=== PATIENT | female | born 1955 | race Caucasian/White ===

== ENCOUNTER 2017-07-17 18:30 | Emergency (ER) | payer OTHER ==
[2017-07-17] MEDS ORDERED: KETOROLAC 30 MG/ML 1 ML VIAL IM STA (19:11)
--- NOTE | 2017-07-17 19:19 | ED ---
Upper Extremity HPI - General Chief Complaint: Extremity Injury, Upper Stated Complaint: Fall Time Seen by Provider: 07/17/17 19:04 Source: patient Mode of arrival: ambulatory Limitations: no limitations - History of Present Illness Initial Comments: 61-year-old female presents with right shoulder pain in the last few hours. Patient states she fell slipped on the ice and fell directly on her right shoulder about 6 hours ago. Patient states she's used ice and ibuprofen which is getting worse. No previous injury no numbness or tingling. Patient denies any radiculopathy. Patient states it's hard to move her shoulder in any direction. no head injury, no neck pain. no loc MD Complaint: Injury to:: right, shoulder - Related Data Home Medications Medication Instructions Recorded Confirmed Tocilizumab [Actemra] 162 mg SQ [id number] 08/05/14 12/10/14 Escitalopram [Lexapro] 5 mg PO HS 07/17/17 07/17/17 Finacea 15% Gel 1 applic TOPICAL DIRECTED 07/17/17 07/17/17 Fluocinolone Acetonide [Lidex Soln] 1 applic TOPICAL DIRECTED 07/17/17 LORazepam [Ativan] 1 mg PO BID PRN 07/17/17 07/17/17 lamoTRIgine [LaMICtal] 200 mg PO BID 07/17/17 07/17/17 predniSONE 5 mg PO DAILY 07/17/17 07/17/17 traZODone HCL [Desyrel] 100 mg PO HS 07/17/17 07/17/17 Allergies Allergy/AdvReac Type Severity Reaction Status Date / Time hydrocodone bitartrate Allergy Swelling Verified 07/17/17 19:31 [From Vicodin] OF THROAT, Review of Systems ROS Statement: Those systems with pertinent positive or pertinent negative responses have been documented in the HPI. ROS Other: All systems not noted in ROS Statement are negative. Musculoskeletal: Reports: joint swelling Neurological: Reports: weakness (right shoulder). Denies: numbness, paresthesias Past Medical History Past Medical History: Rheumatoid Arthritis (RA) History of Any Multi-Drug Resistant Organisms: None Reported Past Surgical History: Breast Surgery Additional Past Surgical History / Comment(s): Breast Reduction,HEMORRHOIDS Past Anesthesia/Blood Transfusion Reactions: No Reported Reaction Past Psychological History: Bipolar, Depression Smoking Status: Former smoker Past Alcohol Use History: None Reported Past Drug Use History: None Reported - Past Family History Mother Family Medical History: Cancer Father Family Medical History: Cancer Sister(s) Family Medical History: No Reported History Brother(s) Family Medical History: No Reported History Daughter(s) Family Medical History: No Reported History (2 daughters no major medical problems.) General Exam Limitations: no limitations General appearance: alert, in no apparent distress Neck exam: Present: normal inspection. Absent: tenderness, meningismus, lymphadenopathy Respiratory exam: Present: normal lung sounds bilaterally. Absent: respiratory distress, wheezes, rales, rhonchi, stridor Cardiovascular Exam: Present: regular rate, normal rhythm, normal heart sounds. Absent: systolic murmur, diastolic murmur, rubs, gallop, clicks Right Shoulder Exam: Present: normal inspection, tenderness. Absent: full ROM, swelling Upper Arm exam: Present: normal inspection, tenderness (left upper arm). Absent : full ROM (decreased ROM , unable to tolerate any movement) Elbow exam: Present: normal inspection, full ROM. Absent: tenderness, swelling Forearm Wrist exam: Present: normal inspection, full ROM. Absent: tenderness, swelling Hand Wrist exam: Present: normal inspection, full ROM. Absent: tenderness, swelling Neuro motor exam: Present: wrist extension intact, thumb opposition intact Neurosensory exam: Present: 2-point discrimination Course Vital Signs 07/17/17 18:44 Temperature 98.1 F Pulse Rate 64 Respiratory 20 Rate Blood Pressure 139/64 O2 Sat by Pulse 100 Oximetry Medical Decision Making - Medical Decision Making Reviewed x-ray greater tuberosity fracture of the right side. Also suspicion for neck fracture as well. Patient and family aware given sling. Patient tolerated it well. patients x-rays also reviewed and discussed with Dr. Mayers. Disposition Clinical Impression: Fracture of humerus, Greater tuberosity of humerus fracture Disposition: HOME SELF-CARE Condition: Good Instructions: Arm Fracture in Adults (ED) Additional Instructions: Patient will take [id number] ibuprofen 800 mg every 6-8 hours as needed for pain. Referrals: Braeden Vilchis MD [Primary Care Provider] - 1-2 days Almita Samaniego PAC [PHYSICIAN TREASURY ASSISTANT] - 1-2 days Time of Disposition: 20:01
--- NOTE | 2017-07-17 19:44 | XR ---
EXAMINATION TYPE: XR shoulder complete RT DATE OF EXAM: 07/17/2017 CLINICAL HISTORY: Right shoulder pain. Status post slip and fall on the ice today. TECHNIQUE: Three views of the right shoulder are obtained. COMPARISON: None. FINDINGS: There is acute complete fracture of the lateral aspect of the humerus at the greater tubero sity. It is minimally displaced. There is also suspicion of a fracture of the surgical neck of the hu merus although this is only suspected on one view. Glenohumeral joint is otherwise intact. Soft tissu e structures of the hemithorax are unremarkable. IMPRESSION: Greater tuberosity fracture is identified within the humerus. There is also suspicion of a surgical n ankit fracture.
[2017-07-17 20:09] VITALS: BP 134/62; PULSE 62; RESP 18; TEMP 98.3
== END 2017-07-17 20:08 | disposition home or self-care (01) ==
LOC: EC 18:30
DX: S42.251A Displaced fracture of greater tuberosity of right humerus, initial encounter for closed fracture (principal); M06.9 Rheumatoid arthritis, unspecified; F31.9 Bipolar disorder, unspecified; Z87.891 Personal history of nicotine dependence; Z88.5 Allergy status to narcotic agent; Z79.52 Long term (current) use of systemic steroids; Z79.899 Other long term (current) drug therapy; W00.0XXA Fall on same level due to ice and snow, initial encounter
CPT/HCPCS: 73030; 99283; 96372; J1885

== ENCOUNTER 2017-07-28 15:39 | Emergency (ER) | payer OTHER ==
--- NOTE | 2017-07-28 15:54 | ED ---
General Adult HPI - General Chief complaint: Dizziness Stated complaint: VERTIGO Time Seen by Provider: 07/28/17 15:45 Source: patient, EMS, RN notes reviewed, old records reviewed Mode of arrival: EMS Limitations: no limitations - History of Present Illness Initial comments: This is a 61-year-old female ER for evaluation. Patient's last ER for evaluation of weakness and dizziness. Patient has history of underlying psychiatric illness. Patient states that his and multiple falls lately secondary to dizziness and weakness on her feet. Patient weighs of some mild back pain. Dizziness is worse with different postures in positions that she assumes. Patient denies any head trauma or headache. No recent change in medication - Related Data Home Medications Medication Instructions Recorded Confirmed Tocilizumab [Actemra] 162 mg SQ [id number] 08/05/14 07/28/17 Escitalopram [Lexapro] 5 mg PO DAILY 07/17/17 07/28/17 Fluocinolone Acetonide [Lidex Soln] 1 applic TOPICAL HS 07/17/17 07/28/17 LORazepam [Ativan] 1 mg PO BID PRN 07/17/17 07/28/17 lamoTRIgine [LaMICtal] 200 mg PO BID 07/17/17 07/28/17 predniSONE 5 mg PO DAILY 07/17/17 07/28/17 traZODone HCL [Desyrel] 100 mg PO HS 07/17/17 07/28/17 Previous Rx's Medication Instructions Recorded Meclizine [Antivert] 25 mg PO TID #30 tab 07/28/17 Ondansetron Odt [Zofran ODT] 4 mg PO Q8HR PRN #30 tab 07/28/17 Allergies Allergy/AdvReac Type Severity Reaction Status Date / Time hydrocodone bitartrate Allergy Swelling Verified 07/28/17 16:07 [From Vicodin] OF THROAT, Review of Systems ROS Statement: Those systems with pertinent positive or pertinent negative responses have been documented in the HPI. ROS Other: All systems not noted in ROS Statement are negative. Past Medical History Past Medical History: Rheumatoid Arthritis (RA) History of Any Multi-Drug Resistant Organisms: None Reported Past Surgical History: Breast Surgery Additional Past Surgical History / Comment(s): Breast Reduction,HEMORRHOIDS Past Anesthesia/Blood Transfusion Reactions: No Reported Reaction Past Psychological History: Bipolar, Depression Smoking Status: Former smoker Past Alcohol Use History: None Reported Past Drug Use History: None Reported - Past Family History Mother Family Medical History: Cancer Father Family Medical History: Cancer Sister(s) Family Medical History: No Reported History Brother(s) Family Medical History: No Reported History Daughter(s) Family Medical History: No Reported History (2 daughters no major medical problems.) General Exam Limitations: no limitations General appearance: alert, in no apparent distress Head exam: Present: atraumatic, normocephalic, normal inspection Eye exam: Present: normal appearance, PERRL, EOMI. Absent: scleral icterus, conjunctival injection, periorbital swelling ENT exam: Present: normal exam, mucous membranes moist Neck exam: Present: normal inspection. Absent: tenderness, meningismus, lymphadenopathy Respiratory exam: Present: normal lung sounds bilaterally. Absent: respiratory distress, wheezes, rales, rhonchi, stridor Cardiovascular Exam: Present: regular rate, normal rhythm, normal heart sounds. Absent: systolic murmur, diastolic murmur, rubs, gallop, clicks GI/Abdominal exam: Present: soft, normal bowel sounds. Absent: distended, tenderness, guarding, rebound, rigid Extremities exam: Present: normal inspection, full ROM, normal capillary refill. Absent: tenderness, pedal edema, joint swelling, calf tenderness Back exam: Present: normal inspection Neurological exam: Present: alert, oriented X3, CN II-XII intact Psychiatric exam: Present: normal affect, normal mood Skin exam: Present: warm, dry, intact, normal color. Absent: rash Course Vital Signs 07/28/17 07/28/17 07/28/17 15:44 16:39 18:22 Temperature 97 F L Pulse Rate 68 68 79 Respiratory 16 18 18 Rate Blood Pressure 163/77 158/75 150/68 O2 Sat by Pulse 97 98 98 Oximetry EKG Findings - EKG Comments: EKG Findings:: EKG shows normal sinus rhythm rate of 72, NE 162, QRS 90, QTc 444 Medical Decision Making - Medical Decision Making 61 female the ER with vertiginous-like symptoms, symptoms have completely resolved while here in the ER, patient able to ambulate without difficulty, CT x -rays labwork is normal and patient can be discharged home - Lab Data Result diagrams: 07/28/17 18:27 07/28/17 16:31 Lab Results 07/28/17 07/28/17 07/28/17 Range/Units 16:31 16:31 18:27 WBC 6.7 (3.8-10.6) k/uL RBC 4.23 (3.80-5.40) m/uL Hgb 12.4 (11.4-16.0) gm/dL Hct 38.5 (34.0-46.0) % MCV 91.0 (80.0-100.0) fL MCH 29.2 (25.0-35.0) pg MCHC 32.1 (31.0-37.0) g/dL RDW 14.2 (11.5-15.5) % Plt Count 205 (150-450) k/uL Neutrophils % 88 % Lymphocytes % 8 % Monocytes % 2 % Eosinophils % 0 % Basophils % 0 % Neutrophils # 5.9 (1.3-7.7) k/uL Lymphocytes # 0.6 L (1.0-4.8) k/uL Monocytes # 0.1 (0-1.0) k/uL Eosinophils # 0.0 (0-0.7) k/uL Basophils # 0.0 (0-0.2) k/uL Sodium 137 (137-145) mmol/L Potassium 4.3 (3.5-5.1) mmol/L Chloride 101 (98-107) mmol/L Carbon Dioxide 25 (22-30) mmol/L Anion Gap 11 mmol/L BUN 13 (7-17) mg/dL Creatinine 0.78 (0.52-1.04) mg/dL Est GFR (MDRD) Af Amer >60 (>60 ml/min/1.73 sqM) Est GFR (MDRD) Non-Af >60 (>60 ml/min/1.73 sqM) Glucose 106 H (74-99) mg/dL Calcium 9.2 (8.4-10.2) mg/dL Phosphorus 3.4 (2.5-4.5) mg/dL Magnesium 1.8 (1.6-2.3) mg/dL Total Bilirubin 0.5 (0.2-1.3) mg/dL AST 27 (14-36) U/L ALT 26 (9-52) U/L Alkaline Phosphatase 79 (38-126) U/L Total Creatine Kinase 65 (30-135) U/L CK-MB (CK-2) 0.3 (0.0-2.4) ng/mL CK-MB (CK-2) Rel Index 0.5 Troponin I <0.012 (0.000-0.034) ng/mL Total Protein 7.1 (6.3-8.2) g/dL Albumin 4.4 (3.5-5.0) g/dL Urine Color Urine Appearance (Clear) Urine pH (5.0-8.0) Ur Specific [place] (1.001-1.035) Urine Protein (Negative) Urine Glucose (UA) (Negative) Urine Ketones (Negative) Urine Blood (Negative) Urine Nitrite (Negative) Urine Bilirubin (Negative) Urine Urobilinogen (<2.0) mg/dL Ur Leukocyte Esterase (Negative) 07/28/17 Range/Units 19:05 WBC (3.8-10.6) k/uL RBC (3.80-5.40) m/uL Hgb (11.4-16.0) gm/dL Hct (34.0-46.0) % MCV (80.0-100.0) fL MCH (25.0-35.0) pg MCHC (31.0-37.0) g/dL RDW (11.5-15.5) % Plt Count (150-450) k/uL Neutrophils % % Lymphocytes % % Monocytes % % Eosinophils % % Basophils % % Neutrophils # (1.3-7.7) k/uL Lymphocytes # (1.0-4.8) k/uL Monocytes # (0-1.0) k/uL Eosinophils # (0-0.7) k/uL Basophils # (0-0.2) k/uL Sodium (137-145) mmol/L Potassium (3.5-5.1) mmol/L Chloride (98-107) mmol/L Carbon Dioxide (22-30) mmol/L Anion Gap mmol/L BUN (7-17) mg/dL Creatinine (0.52-1.04) mg/dL Est GFR (MDRD) Af Amer (>60 ml/min/1.73 sqM) Est GFR (MDRD) Non-Af (>60 ml/min/1.73 sqM) Glucose (74-99) mg/dL Calcium (8.4-10.2) mg/dL Phosphorus (2.5-4.5) mg/dL Magnesium (1.6-2.3) mg/dL Total Bilirubin (0.2-1.3) mg/dL AST (14-36) U/L ALT (9-52) U/L Alkaline Phosphatase (38-126) U/L Total Creatine Kinase (30-135) U/L CK-MB (CK-2) (0.0-2.4) ng/mL CK-MB (CK-2) Rel Index Troponin I (0.000-0.034) ng/mL Total Protein (6.3-8.2) g/dL Albumin (3.5-5.0) g/dL Urine Color Colorless Urine Appearance Clear (Clear) Urine pH 7.0 (5.0-8.0) Ur Specific [place] 1.002 (1.001-1.035) Urine Protein Negative (Negative) Urine Glucose (UA) Negative (Negative) Urine Ketones Negative (Negative) Urine Blood Negative (Negative) Urine Nitrite Negative (Negative) Urine Bilirubin Negative (Negative) Urine Urobilinogen <2.0 (<2.0) mg/dL Ur Leukocyte Esterase Negative (Negative) - Radiology Data Radiology results: report reviewed (CT brain negative, x-rays of chest and back are negative for acute disease, x-ray right shoulder does show fracture but no change), image reviewed Disposition Clinical Impression: Benign paroxysmal positional vertigo Disposition: HOME SELF-CARE Condition: Good Instructions: Benign Paroxysmal Positional Vertigo (ED) Prescriptions: Meclizine [Antivert] 25 mg PO TID #30 tab Ondansetron Odt [Zofran ODT] 4 mg PO Q8HR PRN #30 tab PRN Reason: nausea/vomiting Referrals: Braeden Vilchis MD [Primary Care Provider] - 1-2 days
[2017-07-28] MEDS ORDERED: SODIUM CHLORIDE 0.9% 1,000 ML IV STA (16:24)
[2017-07-28] MEDS ORDERED: diphenhydrAMINE 50 MG/ML 1 ML VIAL IVP STA (16:24)
[2017-07-28 16:54] LABS: ALT 26 U/L (9-52); AST 27 U/L (14-36); Albumin 4.4 g/dL (3.5-5.0); Alkaline Phosphatase 79 U/L (38-126); Anion Gap 11 mmol/L; Blood Urea Nitrogen 13 mg/dL (7-17); Calcium 9.2 mg/dL (8.4-10.2); Carbon Dioxide 25 mmol/L (22-30); Chloride 101 mmol/L (98-107); Glucose 106 mg/dL (74-99); Magnesium 1.8 mg/dL (1.6-2.3); Phosphorus 3.4 mg/dL (2.5-4.5); Potassium 4.3 mmol/L (3.5-5.1); Sodium 137 mmol/L (137-145); Total Bilirubin 0.5 mg/dL (0.2-1.3); Total Protein 7.1 g/dL (6.3-8.2)
[2017-07-28 17:00] LABS: Creatine Kinase 65 U/L (30-135)
--- NOTE | 2017-07-28 17:09 | CT ---
EXAMINATION: CT brain wo con DATE AND TIME: 07/28/2017 5:02 PM ORDERING PROVIDER: Tarik Thompson DO CLINICAL INDICATION: weakness dizziness for 5 days TECHNIQUE: Standard departmental protocol. DLP 1153 mGy-cm. COMPARISON: 11/22/2014 DESCRIPTION: The calvarium is intact. There is no intracranial hemorrhage. There is no mass or mass e ffect. There is no definite new attenuation defect. Remainder of the intra-axial and extra-axial comp artment examination is unremarkable. The paranasal sinuses, middle ear cavities, and mastoid sinus ai r cells are clear. The orbits are intact. IMPRESSION: NO ACUTE PROCESS.
[2017-07-28 17:13] LABS: Creatine Kinase MB 0.3 ng/mL (0.0-2.4); Troponin I <0.012 ng/mL (0.000-0.034)
--- NOTE | 2017-07-28 18:30 | XR ---
EXAMINATION: XR chest 1V DATE AND TIME: 07/28/2017 5:52 PM ORDERING PROVIDER: Tarik Thompson DO CLINICAL INDICATION: Pain TECHNIQUE: AP COMPARISON: 11/22/2014 DESCRIPTION: The lungs are clear. The pleural spaces are negative. The cardiac silhouette is not enlarged. The mediastinal and pleural silhouettes are unremarkable. The skeletal structures are intact without focal findings. The soft tissues are unremarkable. IMPRESSION: NO ACUTE PROCESS.
--- NOTE | 2017-07-28 18:31 | XR ---
PROCEDURE: XR shoulder complete RT DATE AND TIME: 07/28/2017 5:52 PM REFERRING PHYSICIAN: Tarik Thompson DO CLINICAL INDICATION: PHH, Pain TECHNIQUE: 3 views COMPARISON: None FINDINGS: There is a comminuted fracture of the right humeral head, the full extent of which can be c haracterized with CT or MRI. The glenohumeral and acromioclavicular joints are congruent. No other fractures. IMPRESSION: Right humeral head comminuted fracture.
--- NOTE | 2017-07-28 18:34 | XR ---
PROCEDURE: XR spine complete AP and Lat, 9 total views. DATE AND TIME: 07/28/2017 5:59 PM REFERRING PHYSICIAN: Tarik Thompson DO CLINICAL INDICATION: PHH, Pain TECHNIQUE: Orthogonal imaging of the entire spine, total 9 views. COMPARISON: None FINDINGS: There is no fracture or malalignment. The soft tissues are unremarkable. IMPRESSION: NO ACUTE PROCESS.
[2017-07-28 18:38] LABS: Basophils % (A) 0 %; Eosinophils % (A) 0 %; HCT 38.5 % (34.0-46.0); HGB 12.4 gm/dL (11.4-16.0); Lymphocytes # (A) 0.6 k/uL (1.0-4.8); Lymphocytes % (A) 8 %; MCH 29.2 pg (25.0-35.0); MCHC 32.1 g/dL (31.0-37.0); Mean Platelet Volume 7.5; Monocytes # (A) 0.1 k/uL (0-1.0); Monocytes % (A) 2 %; Neutrophils # (A) 5.9 k/uL (1.3-7.7); Neutrophils % (A) 88 %; Platelet Count 205 k/uL (150-450); RBC 4.23 m/uL (3.80-5.40); RDW 14.2 % (11.5-15.5); WBC 6.7 k/uL (3.8-10.6)
[2017-07-28 19:12] LABS: Appearance,Urine Clear (Clear); Bilirubin,Urine Negative (Negative); Blood,Urine Negative (Negative); Color,Urine Colorless; Glucose,Urine (UA) Negative (Negative); Ketones,Urine Negative (Negative); Leukocyte Esterase,Urine Negative (Negative); Nitrite,Urine Negative (Negative); Protein,Urine Negative (Negative); Specific Gravity,Urine 1.002 (1.001-1.035); Urobilinogen,Urine <2.0 mg/dL (<2.0)
[2017-07-28 19:12] LABS: Prothrombin Time 10.1 sec (9.0-12.0)
[2017-07-28 19:22] LABS: Partial Thromboplastin Time 20.7 sec (22.0-30.0)
[2017-07-28 19:44] VITALS: RESP 18
[2017-07-28 19:55] VITALS: BP 147/69; PULSE 71; TEMP 97.8
== END 2017-07-28 19:55 | disposition home or self-care (01) ==
LOC: EC 15:39
DX: H81.10 Benign paroxysmal vertigo, unspecified ear (principal); M06.9 Rheumatoid arthritis, unspecified; F31.9 Bipolar disorder, unspecified; Z87.891 Personal history of nicotine dependence; Z79.52 Long term (current) use of systemic steroids; Z79.899 Other long term (current) drug therapy; Z88.5 Allergy status to narcotic agent
CPT/HCPCS: 36415; 93005; 80053; 82550; 82553; 83735; 84100; 84484; 85025; 85610; 85730; 81003; 72082; 73030; 71045; 70450; 99285; 96374; 96361; J1200

== ENCOUNTER → 2017-10-18 | Outpatient (CLI) | payer OTHER | END | disposition home or self-care (01) | LOC: LABWHC1 11:43 | PROVIDERS: ATTEND Psychiatry & Neurology Psychiatry | DX: F31.81 Bipolar II disorder (principal) | CPT/HCPCS: 36415; 80175 ==

== ENCOUNTER → 2024-03-10 | Outpatient (CLI) | payer MEDICARE ==
--- NOTE | 2024-03-10 15:10 | US ---
EXAMINATION TYPE: US kidneys/renal and bladder DATE OF EXAM: 03/10/2024 COMPARISON: NONE CLINICAL INDICATION: Female, 68 years old with history of N20.1 CALCULUS OF URETER; History of left k idney stone. left flank pain EXAM MEASUREMENTS: Right Kidney: 9.0 x 3.6 x 3.9 cm Left Kidney: 9.9 x 4.5 x 4.2 cm Right Kidney: dense echogenic focus upper pole = 0.6cm Left Kidney: possible dense echogenic focus lower = 0.6cm Bladder: not fully distended limited in assessment due to incomplete distention. Bilateral Jets seen: no Renal cortex thickness and echogenicity maintained. IMPRESSION: Nonobstructing bilateral renal calculi.
--- NOTE | 2024-03-10 15:30 | XR ---
EXAMINATION TYPE: XR KUB DATE OF EXAM: 03/10/2024 COMPARISON: Ultrasound on 03/10/2024 HISTORY: Back pain TECHNIQUE: One view abdominal series FINDINGS: Extensive retained fecal debris with no evidence of obstruction correlate for constipation. Bowel content obscures renal outlines. There is a 6 mm calcification overlying the mid upper pole rig ht kidney. Suspect a 6 mm punctate calcification overlying the midpole left kidney adjacent to the 12 th rib. Calcifications in the pelvis are either likely vascular or related to uterine fibroids. Degenerative change of the spine. Mild bilateral hip arthropathy. Bilateral SI joint arthropathy. IMPRESSION: 1. Bilateral proximally 6 mm renal calculi. 2. Calcifications in the pelvis are nonspecific likely related to uterine fibroid and/or vascular. Th ere is a single 3 mm calcification just above the upper margin of the left pubic symphysis which like ly is outside the expected course of the ureter.
== END | disposition home or self-care (01) ==
LOC: RADUSWWP 14:21
PROVIDERS: ATTEND Urology
DX: N20.1 Calculus of ureter
CPT/HCPCS: 74018; 76770

== ENCOUNTER → 2024-04-05 | Outpatient (CLI) | payer MEDICARE ==
--- NOTE | 2024-04-05 17:01 | XR ---
EXAMINATION TYPE: XR lumbar spine 2 or 3V DATE OF EXAM: 04/05/2024 4:31 PM CLINICAL INDICATION: Female, 68 years old with history of M54.50 LOW BACK PAIN, UNSPECIFIED; PHH COMPARISON: 07/28/2017 TECHNIQUE: XR lumbar spine 2 or 3V - Frontal, lateral and coned in L5-S1 lateral views of the spine. FINDINGS: No evidence of any acute osseous pathology. Wedging of the L5 vertebral body anteriorly. Th is finding is new from 2018. There is grade 1 anterolisthesis of L3 on L4 and L4 and L5 alignment of the lumbar vertebral bodies. Scattered disc space narrowing. Multilevel marginal osteophyte formation throughout the visualized spine. There is facet joint arthropathy throughout the spine. Scattered at least mild neural foraminal stenosis. IMPRESSION: 1. New from 2018 L5 vertebral body wedging related for acute/subacute fracture. 2. Moderate multilevel disc degeneration. 3. Grade 1 anterolisthesis of L3 on L4 and L4 on L5. [facility], , 04/05/2024 4:59 PM
== END | disposition home or self-care (01) ==
LOC: RADXRMAIN 15:58
PROVIDERS: ATTEND Internal Medicine Geriatric Medicine
DX: M54.50 Low back pain, unspecified
CPT/HCPCS: 72100